=== PATIENT | female | born 1980 | race Caucasian/White ===

== ENCOUNTER 2018-05-13 16:25 | Inpatient (IN) | payer OTHER ==
[2018-05-13] MEDS ORDERED: MISOPROSTOL 200 MCG TAB PR (17:30)
[2018-05-13] MEDS ORDERED: CEFAZOLIN 2 GM/50 ML (PMX) 50 ML IV (17:30)
[2018-05-13] MEDS ORDERED: METHYLERGONOVINE 0.2 MG INJ IM (17:30)
[2018-05-13] MEDS ORDERED: CARBOPROST 250 MCG INJ IM (17:30)
[2018-05-13] MEDS ORDERED: OXYTOCIN 30 UNITS/LR 500 ML IV ×2 (17:30→23:22)
[2018-05-13] MEDS: LACTATED RINGER'S 1,000 ML IV ×2 (17:50→19:31)
[2018-05-13] MEDS: TERBUTALINE 1 MG/ML INJ SC (17:53)
[2018-05-13 17:56] LABS: ADD MAN DIFF? NO
[2018-05-13 18:02] LABS: BASOPHILS % 0.4 % (0.0-2.0); EOSINOPHILS # 0.1 10^3/ul (0.0-0.5); EOSINOPHILS % 1.1 % (0.0-7.0); HEMATOCRIT 32.8 % (37.0-47.0); HEMOGLOBIN 10.2 g/dl (12.0-16.0); LYMPHOCYTES # 1.8 10^3/ul (0.8-2.9); LYMPHOCYTES % 17.9 % (15.0-51.0); MEAN CORPUSCULAR HEMOGLOBIN 25.1 pg (29.0-33.0); MEAN CORPUSCULAR HGB CONC 31.1 g/dl (32.0-37.0); MEAN CORPUSCULAR VOLUME 80.6 fl (82.0-101.0); MEAN PLATELET VOLUME 10.3 fl (7.4-10.4); MONOCYTES % 9.5 % (0.0-11.0); NEUTROPHILS % 69.9 % (39.0-77.0); PLATELET COUNT 246 10^3/UL (140-415); RED BLOOD COUNT 4.07 10^6/ul (4.20-5.40)
[2018-05-13 18:20] LABS: INR 0.98; PROTIME 13.1 Sec (11.9-14.9)
[2018-05-13 18:21] LABS: PARTIAL THROMBOPLASTIN TIME 28.5 Sec (25.0-35.0)
[2018-05-13 18:49] LABS: HEPATITIS B SURFACE ANTIGEN NEGATIVE (NEGATIVE)
[2018-05-13] MEDS ORDERED: ONDANSETRON 4 MG INJ IV ×2 (20:30)
[2018-05-13] MEDS ORDERED: DIPHENHYDRAMINE 50 MG INJ IV ×2 (20:30)
[2018-05-13] MEDS ORDERED: EPHEDrine SULFATE 50 MG/5 ML SYG IV (20:30)
[2018-05-13] MEDS ORDERED: MIDAZOLAM 1 MG/ML 2 ML INJ IV (20:30)
[2018-05-13] MEDS ORDERED: MEPERIDINE 25 MG INJ IV (20:30)
[2018-05-13] MEDS ORDERED: KETOROLAC 30 MG INJ IV (20:30)
[2018-05-13] MEDS ORDERED: ZOLPIDEM 5 MG TAB PO (20:30)
[2018-05-13] MEDS ORDERED: HYDROmorphONE 0.5 MG/0.5 ML SYG IV ×2 (20:30)
[2018-05-13] MEDS ORDERED: NALBUPHINE HCL (10 MG/1 ML) INJ IV (20:30)
[2018-05-13] MEDS ORDERED: NALOXONE (0.4 MG/ML) INJ IV (20:30)
[2018-05-13] MEDS ORDERED: BUPIVACAINE 0.75%/DEXT (SPINAL) 2 ML INJ (21:50)
[2018-05-13] MEDS ORDERED: morphine SULFATE/PF (10 MG/10 ML) INJ (21:51)
[2018-05-13] MEDS ORDERED: OXYTOCIN 10 UNIT INJ (22:25)
[2018-05-13] MEDS ORDERED: MIDAZOLAM 1 MG/ML 2 ML INJ ×2 (22:28→22:55)
[2018-05-13] MEDS ORDERED: ONDANSETRON 4 MG INJ (22:28)
[2018-05-13] MEDS ORDERED: DIPHENHYDRAMINE 50 MG INJ (23:24)
[2018-05-13] MEDS: OXYTOCIN 30 UNITS/LR 500 ML IV (23:43)
[2018-05-14] MEDS ORDERED: METHYLERGONOVINE 0.2 MG TAB PO (02:30)
[2018-05-14] MEDS ORDERED: MAGNESIUM HYDROXIDE 30ML CUP PO (02:30)
[2018-05-14] MEDS ORDERED: OXYTOCIN 30 UNITS/LR 500 ML IV (02:30)
[2018-05-14] MEDS ORDERED: OXYCODONE/ACETAMINOPHEN (5/325) TAB PO (02:30)
[2018-05-14] MEDS ORDERED: CARBOPROST 250 MCG INJ IM (02:30)
[2018-05-14] MEDS ORDERED: METHYLERGONOVINE 0.2 MG INJ IM (02:30)
[2018-05-14] MEDS ORDERED: MISOPROSTOL 200 MCG TAB PR (02:30)
[2018-05-14] MEDS: LACTATED RINGER'S 1,000 ML IV (03:05)
[2018-05-14] MEDS: CITRIC ACID/SODIUM CITRATE 15 ML CUP PO (03:05)
[2018-05-14] MEDS: OXYTOCIN 30 UNITS/LR 500 ML IV (03:50)
[2018-05-14] MEDS ORDERED: IBUPROFEN 800 MG TAB PO (06:00)
[2018-05-14] MEDS: SENNA/DOCUSATE NA (8.6MG/50MG) TAB PO ×2 (09:35→21:25)
[2018-05-14 15:14] LABS: RAPID PLASMA REAGIN NONREACTIVE (NR)
[2018-05-14] MEDS: LANOLIN 7 GM TUBE TOP (18:21)
[2018-05-14] MEDS: DEXTROSE 5%-LR 1,000 ML IV (19:30)
[2018-05-14] MEDS: OXYCODONE/ACETAMINOPHEN (5/325) TAB PO (21:25)
[2018-05-14] MEDS: HYDROCODONE/APAP (5/325) TAB PO ×2 (21:26→22:00)
[2018-05-14] MEDS: IBUPROFEN 800 MG TAB PO (22:00)
[2018-05-15] MEDS: DEXTROSE 5%-LR 1,000 ML IV ×2 (02:06→10:06)
[2018-05-15] MEDS: IBUPROFEN 800 MG TAB PO ×3 (06:00→21:36)
[2018-05-15] MEDS: HYDROCODONE/APAP (5/325) TAB PO ×3 (06:00→22:00)
[2018-05-15] MEDS: OXYCODONE/ACETAMINOPHEN (5/325) TAB PO ×4 (06:08→21:36)
[2018-05-15 08:50] LABS: ADD MAN DIFF? NO
[2018-05-15] MEDS: SENNA/DOCUSATE NA (8.6MG/50MG) TAB PO ×2 (08:51→21:36)
[2018-05-15 08:55] LABS: WHITE BLOOD COUNT 11.3 10^3/ul (4.8-10.8)
[2018-05-15 08:55] LABS: BASOPHILS % 0.2 % (0.0-2.0); EOSINOPHILS # 0.1 10^3/ul (0.0-0.5); EOSINOPHILS % 0.8 % (0.0-7.0); HEMATOCRIT 32.3 % (37.0-47.0); HEMOGLOBIN 10.2 g/dl (12.0-16.0); LYMPHOCYTES # 1.2 10^3/ul (0.8-2.9); LYMPHOCYTES % 10.7 % (15.0-51.0); MEAN CORPUSCULAR HEMOGLOBIN 25.3 pg (29.0-33.0); MEAN CORPUSCULAR HGB CONC 31.6 g/dl (32.0-37.0); MEAN CORPUSCULAR VOLUME 80.1 fl (82.0-101.0); MEAN PLATELET VOLUME 11.1 fl (7.4-10.4); MONOCYTE # 0.8 10^3/ul (0.3-0.9); MONOCYTES % 7.4 % (0.0-11.0); NEUTROPHIL # 9.1 10^3/ul (1.6-7.5); NEUTROPHILS % 80.3 % (39.0-77.0); PLATELET COUNT 257 10^3/UL (140-415); RED BLOOD COUNT 4.03 10^6/ul (4.20-5.40); RED CELL DISTRIBUTION WIDTH 15.1 % (11.5-14.5)
[2018-05-15 09:02] LABS: POSITIVE DIFF @See below
[2018-05-16] MEDS: OXYCODONE/ACETAMINOPHEN (5/325) TAB PO ×2 (06:12→14:00)
[2018-05-16] MEDS: IBUPROFEN 800 MG TAB PO ×2 (06:13→13:58)
[2018-05-16] MEDS: HYDROCODONE/APAP (5/325) TAB PO ×3 (06:13→16:40)
[2018-05-16] MEDS: SENNA/DOCUSATE NA (8.6MG/50MG) TAB PO (09:00)
[2018-05-17] MEDS ORDERED: DIPHTH/TET/ACEL PERTUSS (ADULT) 0.5 ML VIAL IM* (09:00)
[2018-05-17] MEDS ORDERED: MEASLES,MUMPS,RUBELLA VACCINE INJ SC* (09:00)
== END 2018-05-16 17:47 | disposition home or self-care (01) | DRG 766 ==
LOC: OBT 16:25 → L-D 05-14 00:50 → PP1 05-14 03:17 → OBT 17:22 → L-D 17:15
PROVIDERS: Obstetrics & Gynecology
PROC: 10D00Z1 Extraction of Products of Conception, Low, Open Approach (ICD-10-PCS; principal; 2018-05-14)
PROC: 0UL70ZZ Occlusion of Bilateral Fallopian Tubes, Open Approach (ICD-10-PCS; 2018-05-14)
PROC: 3E033VJ Introduction of Other Hormone into Peripheral Vein, Percutaneous Approach (ICD-10-PCS; 2018-05-14)
DX: O34.211 Maternal care for low transverse scar from previous cesarean delivery (principal); N85.8 Other specified noninflammatory disorders of uterus; Z30.2 Encounter for sterilization; O34.13 Maternal care for benign tumor of corpus uteri, third trimester; Z3A.38 38 weeks gestation of pregnancy; Z37.0 Single live birth
CPT/HCPCS: 85025; 85610; 85730; 86592; 86850; 86900; 86901; 87340; 88302; 99464